=== PATIENT | male | born 1990 | race Caucasian/White ===

== ENCOUNTER 2021-09-25 16:26 | Emergency (ER) | payer OTHER ==
[2021-09-25] MEDS ORDERED: Ketorolac 30 MG/ML SDV IVPUSH ONE (17:59)
[2021-09-25] MEDS ORDERED: Sodium Chloride 0.9% 1,000 ML IV ONE (17:59)
[2021-09-25] MEDS ORDERED: Ondansetron 4 MG/2 ML SDV IVPUSH ONE (17:59)
[2021-09-25 18:16] LABS: CORONAVIRUS COVID-19 NAA POSITIVE (NEGATIVE); INFLUENZA A NAA NEGATIVE (NEGATIVE); INFLUENZA B NAA NEGATIVE (NEGATIVE)
[2021-09-25 19:03] LABS: CARBON DIOXIDE,CO2 26.3 mmol/L (21.0-32.0); POTASSIUM,K 3.7 mmol/L (3.5-5.1)
== END 2021-09-25 19:43 | disposition home or self-care (01) ==
LOC: MW.ED 16:26
DX: U07.1 COVID-19 (principal); F17.210 Nicotine dependence, cigarettes, uncomplicated
CPT/HCPCS: 0240U; 36415; 80053; 81003; 85025; 93005; 96374; 96375; 99284; J1885; J2405; J7030; 93010; 99283